=== PATIENT | female | born 2000 | race African-American/Black ===

== ENCOUNTER 2021-06-14 22:48 | Emergency (ER) | payer MEDICAID ==
[~2021-06-14] VITALS: Ht 167.6 cm; Wt 120.9 kg
[2021-06-15 00:59] LABS: BASOPHILS % 0.7 % (0.0-2.0); EOSINOPHILS % 0.3 % (0.0-5.0); HEMATOCRIT. 40.6 % (36.0-48.0); HEMOGLOBIN. 13.5 g/dL (12.0-16.0); MEAN CORPUSCULAR HEMOGLOBIN 26.9 pg (28.0-32.0); MEAN CORPUSCULAR VOLUME 80.9 fL (81.0-99.0); MEAN PLATELET VOLUME 8.9 fl (7.4-10.4); MONOCYTES % 6.9 % (2.0-8.0); NEUTROPHILS % 61.1 % (40.0-76.0); PLATELET 272 x1000/uL (130-400); RED BLOOD CELL COUNT 5.01 mill/uL (4.2-5.4); RED CELL DISTRIBUTION WIDTH 13.7 % (11.6-14.6)
[2021-06-15] MEDS ORDERED: ALBUTEROL 6.7GM HFA INHALER ORI ONE (01:00)
[2021-06-15 01:02] LABS: CHLORIDE 108 mEq/L (98-107)
[2021-06-15 02:28] VITALS: BP 132/81
== END 2021-06-15 02:28 | disposition home or self-care (01) ==
LOC: ER 22:48
DX: R07.89 Other chest pain (principal); G40.909 Epilepsy, unspecified, not intractable, without status epilepticus; Z20.822 Contact with and (suspected) exposure to COVID-19; R06.02 Shortness of breath
CPT/HCPCS: 36415; 71045; 80053; 83880; 84484; 85025; 87426; 94640; 99284

== ENCOUNTER 2021-07-17 10:46 | Emergency (ER) | payer MEDICAID ==
[~2021-07-17] VITALS: Ht 175.3 cm; Wt 120.0 kg
[2021-07-17 11:16] VITALS: BP 131/88
== END 2021-07-17 11:53 | disposition home or self-care (01) ==
LOC: ER 10:46
DX: N92.6 Irregular menstruation, unspecified (principal); Z32.02 Encounter for pregnancy test, result negative; G40.909 Epilepsy, unspecified, not intractable, without status epilepticus
CPT/HCPCS: 81025; 99282